=== PATIENT | female | born 1965 | race Caucasian/White ===

== ENCOUNTER → 2016-09-28 | Outpatient (CLI) | payer MEDICAID ==
--- NOTE | 2016-09-28 15:41 | RADIOLOGY REPORT (SQ) ---
EXAM DESCRIPTION: ABDOMEN 2 VIEWS COMPLETED DATE/TIME: 09/28/2016 2:02 pm REASON FOR STUDY: LEFT UPPER QUADRANT PAIN R10.12 LEFT UPPER QUADRANT PAIN COMPARISON: None. NUMBER OF VIEWS: Two views. TECHNIQUE: Supine and erect/decubitus radiographic images of the abdomen acquired. LIMITATIONS: None. FINDINGS: FREE AIR: None. No abnormal gas collections. LUNG BASES: Clear. BOWEL GAS PATTERN: Nonobstructive pattern. No dilated loops or air fluid levels. CALCIFICATIONS: Nonspecific calcifications in the left upper quadrant. SOFT TISSUES: No gross mass or suggestion of organomegaly. HARDWARE: None in the abdomen. BONES: No acute fracture. No worrisome bone lesions. OTHER: No other significant finding. IMPRESSION: Left upper quadrant calcifications of unknown margin. Consider CT scan of the abdomen a nd pelvis. TECHNICAL DOCUMENTATION: JOB ID: [id number] [employer]- All Rights Reserved
== END ==
LOC: OD 13:46
PROVIDERS: ATTEND Nurse Practitioner Acute Care
DX: R10.12 Left upper quadrant pain (principal)
CPT/HCPCS: 74020